=== PATIENT | male | born 1950 | race Caucasian/White ===

== ENCOUNTER → 2019-06-10 | Outpatient (CLI) | payer MEDICARE | END | disposition home or self-care (01) | LOC: RAH 07:37 | PROVIDERS: ATTEND Internal Medicine Critical Care Medicine | DX: Z13.6 Encounter for screening for cardiovascular disorders (principal); I70.0 Atherosclerosis of aorta | CPT/HCPCS: 76775 ==

== ENCOUNTER → 2019-09-15 | Outpatient (CLI) | payer OTHER | END | disposition home or self-care (01) | LOC: RAH 12:38 | PROVIDERS: ATTEND Internal Medicine Critical Care Medicine | DX: Z13.6 Encounter for screening for cardiovascular disorders (principal) | CPT/HCPCS: 75571 ==

== ENCOUNTER → 2019-10-10 | Outpatient (CLI) | payer MEDICARE ==
[~2019-10-10] VITALS: Ht 167.6 cm; Wt 75.7 kg
[~2019-10-10] MED LIST: REGADENOSON 0.4 MG/5 ML PF SYG IVP SCH
== END | disposition home or self-care (01) ==
LOC: SHCH 08:23
PROVIDERS: ATTEND Internal Medicine Cardiovascular Disease
DX: I25.10 Atherosclerotic heart disease of native coronary artery without angina pectoris (principal)
CPT/HCPCS: 78452; 93017; 96374; A9500 ×2; J2785